=== PATIENT | female | born 1945 | race Caucasian/White ===

== ENCOUNTER 2016-10-21 13:35 | Emergency (ER) | payer MEDICARE, OTHER ==
[2016-10-21] MEDS ORDERED: BABY ASPIRIN 81 MG CHEW PO ONE (14:23)
[2016-10-21] MEDS ORDERED: Sodium Chloride 0.9% 1000 ML 1,000 ML IV SCH (14:30)
[2016-10-21] MEDS ORDERED: Xopenex 1.25 MG/0.5 ML UD NEBULE IH ONE ×2 (14:31→14:50)
[2016-10-21] MEDS ORDERED: Levofloxacin 500MG/100ML D5W 100 ML IV ONE ×2 (14:31→14:36)
--- NOTE | 2016-10-21 14:34 | ERPHSYRPT ---
- History of Present Illness Time Seen by Provider: 10/21/16 13:55 Source: patient Exam Limitations: clinical condition Patient Subjective Stated Complaint: STATES URI FOR ONE WEEK AND TIGHTNESS IN CHEST WITH COUGHING. DENIES PROD COUGH. CHEST TIGHTNESS IS A "5" AT REST. DENIES ANY OTHER SYMPTOMS Triage Nursing Assessment: AMBULATED TO ROOM WITHOUT DIFFICULTY. SKIN W/D, COLOR NORMAL, RESP EASY. OCCASIONAL DRY COUGH NOTED. SLIGHT EDEMA NOTED TO RIGHT LOWER LEG. PATIENT STATES THIS IS NORMAL FOR HER. PEDAL PULSES FAINT. GOOD CAP REFILL Physician History: PATIENT COMPLAINS OF PRODUCTIVE COUGH X 7 DAYS ASSOCIATED WITH CHEST TIGHTNESS, FEVER, CHILLS. HAS OCCASIONAL DYSPNEA. DENIES RADIATION OF CHEST TIGHTNESS TO NECK, JAW OR ARMS. Timing/Duration: week(s) Cough Quality/Degree: productive cough, sputum Possible Cause: occasional episodes Modifying Factors: Improves With: activity, coughing, deep breath Associated Symptoms: chest pain/soreness (UPON COUGHING) International travel in last 2 weeks: No Allergies/Adverse Reactions: amoxicillin [From Augmentin] Allergy (Verified 10/21/16 14:45) clavulanic acid [From Augmentin] Allergy (Verified 10/21/16 14:45) Sulfa (Sulfonamide Antibiotics) Allergy (Verified 10/21/16 14:45) acetaminophen [From Vicodin] Adverse Reaction (Verified 10/21/16 14:45) hydrocodone bitartrate [From Vicodin] Adverse Reaction (Verified 10/21/16 14:45) prednisone Adverse Reaction (Verified 10/21/16 14:45) Home Medications: Aspirin 81 mg PO DAILY 10/15/13 [History] Atenolol 50 mg [Tenormin 50 mg] 50 mg PO HS 10/15/13 [History] Cholecalciferol (Vitamin D3) [Replesta] 50,000 units PO DAILY 10/15/13 [History] Duloxetine HCl [Cymbalta] 60 mg PO BID 10/15/13 [History] Ezetimibe/Simvastatin [Vytorin 10-40 mg Tablet] 1 tab PO UD 10/15/13 [History] Ibuprofen 200 mg [Motrin 200 mg] 600 mg PO DAILY 10/15/13 [History] Pregabalin 50 mg [Lyrica 50MG] 50 mg PO BID 10/15/13 [History] Risedronate Sodium 35 mg [Actonel 35 MG Tablet] 35 mg PO WEEKLY 10/15/13 [ History] Zolpidem Tartrate [Ambien] 5 mg PO HS 10/15/13 [History] Cyanocobalamin 100 Mcg [Vitamin B-12 100 Mcg] 100 mcg SQ UD 02/05/16 [ History] Mirabegron [Myrbetriq] 25 mg PO DAILY 02/05/16 [History] Hx Tetanus, Diphtheria Vaccination/Date Given: No Hx Influenza Vaccination/Date Given: Yes Hx Pneumococcal Vaccination/Date Given: Yes - Review of Systems Constitutional: Fever, Chills Eyes: No Symptoms Ears, Nose, & Throat: No Symptoms Respiratory: Cough, Dyspnea Cardiac: Chest Pain, No Edema, No Syncope Abdominal/Gastrointestinal: No Symptoms, No Abdominal Pain, No Nausea, No Vomiting, No Diarrhea Genitourinary Symptoms: No Symptoms, No Dysuria Musculoskeletal: No Symptoms, No Back Pain, No Neck Pain Skin: No Symptoms, No Rash Neurological: No Dizziness, No Focal Weakness, No Sensory Changes Psychological: No Symptoms Endocrine: No Symptoms All Other Systems: Reviewed and Negative - Past Medical History Pertinent Past Medical History: Yes Neurological History: No Pertinent History ENT History: No Pertinent History Cardiac History: Hypertension Respiratory History: No Pertinent History Endocrine Medical History: No Pertinent History Musculoskeletal History: Arthritis GI Medical History: No Pertinent History History: No Pertinent History Psycho-Social History: No Pertinent History Female Reproductive Disorders: No Pertinent History - Past Surgical History Past Surgical History: Yes Neuro Surgical History: No Pertinent History Cardiac: No Pertinent History Respiratory: No Pertinent History Gastrointestinal: Hemorrhoidectomy Genitourinary: No Pertinent History Musculoskeletal: Orthopedic Surgery Female Surgical History: Hysterectomy Other Surgical History: TONSIL - Social History Smoking Status: Former smoker Exposure to second hand smoke: No Drug Use: none Patient Lives Alone: No - Nursing Vital Signs Nursing Vital Signs: Initial Vital Signs Temperature 98.2 F Temperature Source Oral Pulse Rate [Right Radial] 80 Pulse Rate 76 Respiratory Rate 22 Blood Pressure [Right Arm] 108/55 Pain Intensity 5 - Physical Exam General Appearance: no apparent distress, alert Eye Exam: PERRL/EOMI, eyes nml inspection Ears, Nose, Throat Exam: normal ENT inspection, TMs normal, pharynx normal, moist mucous membranes Neck Exam: normal inspection, non-tender, supple, full range of motion Respiratory Exam: crackles/rales (GOOD AIR EXCHANGE WITH RIGHT BASILAR CRACKLES FAINT WHEEZES, NO RHONCHI), No respiratory distress Cardiovascular Exam: regular rate/rhythm, normal heart sounds Gastrointestinal/Abdomen Exam: soft, normal bowel sounds (NONTENDER), No tenderness Back Exam: normal inspection, No CVA tenderness, No vertebral tenderness Extremity Exam: normal inspection, normal range of motion Neurologic Exam: alert, oriented x 3, cooperative, normal mood/affect, sensation nml, No motor deficits Skin Exam: normal color, warm, dry, No rash Lymphatic Exam: No adenopathy SpO2 Interpretation: normal SpO2: 97 Oxygen Delivery: Nasal Cannula - Course EKG Interpreted by Me: Sinus Rhythm, NORMAL AXIS - Radiology Exams Chest X-ray Interpretation: Interpreted by me (LEFT BASILAR STRANDING, NO INFILTRATES) Ordered Tests: Active Orders 24 hr Category Date Time Status EKG-ER Only STAT Care 10/21/16 14:23 Active Oxygen-ED Only NASAL CANNULA 2 lpm Care 10/21/16 14:23 Active CHEST 2 VIEWS (PA AND LAT) Stat Exams 10/21/16 14:23 Taken BLOOD CULTURE Stat Lab 10/21/16 14:56 Received BMP Stat Lab 10/21/16 13:50 Completed CBC W DIFF Stat Lab 10/21/16 13:50 Completed CULTURE,SPUTUM Stat Lab 10/21/16 14:31 Uncollected TROPONIN Stat Lab 10/21/16 13:50 Completed Respiratory Nebulizer STAT RT 10/21/16 15:00 Completed Medication Summary Generic Name Dose Route Start Last Admin Trade Name Freq PRN Reason Stop Dose Admin Sodium Chloride 1,000 mls @ 100 mls/hr 10/21/16 14:30 10/21/16 14:38 Sodium Chloride 0.9% 1000 Ml IV 11/20/16 14:29 100 mls/hr .Q10H ELIZA Administration Discontinued Medications Generic Name Dose Route Start Last Admin Trade Name Freq PRN Reason Stop Dose Admin Aspirin 243 mg 10/21/16 14:23 10/21/16 14:38 Baby Aspirin 81 Mg Chew PO 10/21/16 14:24 243 mg STAT ONE Administration Aspirin Confirm 10/21/16 14:36 Baby Aspirin 81 Mg Chew Administered 10/21/16 14:37 Dose 81 mg .ROUTE .STK-MED ONE Levofloxacin/Dextrose 100 mls @ 100 mls/hr 10/21/16 14:31 10/21/16 14:37 Levofloxacin 500mg/100ml D5w IV 10/21/16 15:30 100 mls/hr STAT ONE Administration Sodium Chloride Confirm 10/21/16 14:36 Sodium Chloride 0.9% 1000 Ml Administered 10/21/16 14:37 Dose 1,000 mls @ ud .ROUTE .STK-MED ONE Levofloxacin/Dextrose Confirm 10/21/16 14:36 Levofloxacin 500mg/100ml D5w Administered 10/21/16 14:37 Dose 100 mls @ ud IV .STK-MED ONE Levalbuterol HCl 1.25 mg 10/21/16 14:31 10/21/16 15:00 Xopenex 1.25 Mg/0.5 Ml Ud Nebule IH 10/21/16 14:32 1.25 mg STAT ONE Administration Levalbuterol HCl Confirm 10/21/16 14:50 Xopenex 1.25 Mg/0.5 Ml Ud Nebule Administered 10/21/16 14:51 Dose 1.25 mg IH .STK-MED ONE Sodium Chloride Confirm 10/21/16 14:50 Sodium Chloride 3 Ml Ud Nebules Administered 10/21/16 14:51 Dose 3 ml IH .STK-MED ONE Lab/Rad Data: Laboratory Result Diagrams 10/21/16 13:50 10/21/16 13:50 Laboratory Results 10/21/16 10/21/16 10/21/16 Range/Units 13:50 13:50 13:50 WBC 7.9 (4.0-10.5) K/mm3 RBC 3.81 L (4.1-5.4) M/mm3 Hgb 12.4 (12.0-16.0) gm/dl Hct 37.9 (35-47) % MCV 99.5 (78-100) fl MCH 32.5 H (26-32) pg MCHC 32.7 (32-36) g/dl RDW 13.2 (11.5-14.0) % Plt Count 292 (150-450) K/mm3 MPV 9.9 H (6-9.5) fl Gran % 57.5 (36.0-66.0) % Lymphocytes % 32.5 (24.0-44.0) % Monocytes % 6.7 (0.0-12.0) % Eosinophils % 3.2 (0.00-5.0) % Basophils % 0.1 (0.0-0.4) % Basophils # 0.01 (0-0.4) Sodium 144 (136-145) mEq/L Potassium 3.9 (3.5-5.1) mEq/L Chloride 108 H (98-107) mEq/L Carbon Dioxide 26.0 (21-32) mEq/L Anion Gap 13.8 (5-15) MEQ/L BUN 18 (9-20) mg/dL Creatinine 1.19 (0.55-1.30) mg/dl Estimated GFR 47 ML/MIN Glucose 91 (70-110) MG/DL Calcium 8.7 (8.5-10.1) mg/dL Troponin I < 0.017 (0.000-0.056) ng/ml - Progress Progress: improved Air Movement: good Progress Note: 10/21/16 14:51 PATIENT GIVEN IV NORMAL SALINE 100ML/HR, LEVAQUIN 500MG IVPB, XOPENEX 1.25MG AEROSOL TREATMENT Blood Culture(s) Obtained: Yes Antibiotics given: Yes (LEVAQUIN 500MG IVPB) Counseled pt/family regarding: lab results, diagnosis, need for follow-up, rad results - Departure Time of Disposition: 17:00 Departure Disposition: Home Clinical Impression: ACUTE BRONCHITIS Condition: Stable Critical Care Time: No Additional Instructions: ANTIBIOTIC LEVAQUIN 500MG DAILY FOR 10 DAYS. TESSALON PERLES 100MG EVERY 12 HOURS NEEDED FOR COUGHING. TYLENOL OR MOTRIN NEEDED FOR FEVER. CONSULT YOUR FAMILY PHYSICIAN FOR EVALUATION IN 1 WEEK. RETURN TO EMERGENCY FOR PERSISTENT COUGH, FEVER OR ONSET OF DIFFICULTY BREATHING. Prescriptions: Benzonatate [Tessalon Perle] 100 mg PO BIDPRN PRN #15 capsule PRN Reason: Cough Levofloxacin [Levaquin] 500 mg PO DAILY #10 tablet
[2016-10-21] MEDS ORDERED: Sodium Chloride 0.9% 1000 ML 1,000 ML ONE (14:36)
[2016-10-21] MEDS ORDERED: BABY ASPIRIN 81 MG CHEW ONE (14:36)
[2016-10-21 14:47] LABS: BASOPHIL % 0.1 % (0.0-0.4); Eosinophil % 3.2 % (0.00-5.0); Granulocytes % 57.5 % (36.0-66.0); Lymphocytes % 32.5 % (24.0-44.0); Mean Cell Volume 99.5 fl (78-100); Mean Corpuscular Hemoglobin 32.5 pg (26-32); Mean Platelet Volume 9.9 fl (6-9.5); Monocytes % 6.7 % (0.0-12.0); Platelet Count 292 K/mm3 (150-450); Red Blood Count 3.81 M/mm3 (4.1-5.4); Red Cell Distribution Width 13.2 % (11.5-14.0); White Blood Count 7.9 K/mm3 (4.0-10.5)
[2016-10-21 14:50] LABS: ANION GAP 13.8 MEQ/L (5-15); Potassium 3.9 mEq/L (3.5-5.1)
[2016-10-21] MEDS ORDERED: Sodium Chloride 3 ML UD NEBULES IH ONE (14:50)
[2016-10-21 17:16] VITALS: BP 97/62; PULSE 75; O2SAT 96
--- NOTE | 2016-10-21 20:14 | XRAY ---
Indication: Cough. Comparison: July 26, 2013. PA/lateral chest again hyperinflated with minimal bibasilar subsegmental atelectasis/scarring. Remaining heart and lungs normal. Bony thorax intact again with mild osteopenia and degenerative changes. Impression: Stable nonacute chest with chronic features.
== END 2016-10-21 17:17 | disposition home or self-care (01) ==
LOC: ED 13:35
DX: J20.9 Acute bronchitis, unspecified (principal); R05 Cough; R07.9 Chest pain, unspecified; F50.9 Eating disorder, unspecified; Z79.899 Other long term (current) drug therapy
CPT/HCPCS: 96365; 99285; 36000; 96360; 96361; 93005; 87040; 36415; 85025; 80048; 84484; 71020; 94640; A9270 ×2; 99284; J1956

== ENCOUNTER 2016-12-25 08:59 | Emergency (ER) | payer MEDICARE, OTHER ==
[2016-12-25] MEDS ORDERED: SUBLIMAZE 100 MCG/2 ML IV ONE (09:37)
--- NOTE | 2016-12-25 09:43 | ERPHSYRPT ---
- History of Present Illness Time Seen by Provider: 12/25/16 09:05 Source: patient, family () Patient Subjective Stated Complaint: pt states on in the evening she fell over her dog and landed on right side. pt states he hit the right side of head. pt c/o pain to head and feels "off." Triage Nursing Assessment: pt pink, warm, dry. pt ambulated into er on own without difficulty. no bruising to right side. hematoma noted to right side of head. pupils perrl. Physician History: CC: fall Hx: 71 y/o patient of Dr Morgan Lieberman. She fell Saturday (2 days ago) when a dog was running under her feet. She bumped head and had a large hematoma. She has neck pain. She now has worsened headache and feeling of dizziness. No N/T/W. She has increased right hip pain. Able to ambulate. No chest or abd pain. No cuts. Takes ASA daily. Symptoms worse so came to ER. Occurred: days ago (2) Reason for Fall: tripped Severity of Pain-Max: moderate Severity of Pain-Current: moderate Allergies/Adverse Reactions: amoxicillin [From Augmentin] Allergy (Verified 12/25/16 09:32) clavulanic acid [From Augmentin] Allergy (Verified 12/25/16 09:32) Sulfa (Sulfonamide Antibiotics) Allergy (Verified 12/25/16 09:32) acetaminophen [From Vicodin] Adverse Reaction (Verified 12/25/16 09:32) hydrocodone bitartrate [From Vicodin] Adverse Reaction (Verified 12/25/16 09:32) prednisone Adverse Reaction (Verified 12/25/16 09:32) Home Medications: Aspirin 81 mg PO DAILY 10/15/13 [History] Atenolol 50 mg [Tenormin 50 mg] 50 mg PO HS 10/15/13 [History] Cholecalciferol (Vitamin D3) [Replesta] 50,000 units PO DAILY 10/15/13 [History] Duloxetine HCl [Cymbalta] 60 mg PO BID 10/15/13 [History] Ezetimibe/Simvastatin [Vytorin 10-40 mg Tablet] 1 tab PO UD 10/15/13 [History] Ibuprofen 200 mg [Motrin 200 mg] 600 mg PO DAILY 10/15/13 [History] Risedronate Sodium 35 mg [Actonel 35 MG Tablet] 35 mg PO WEEKLY 10/15/13 [ History] Zolpidem Tartrate [Ambien] 5 mg PO HS 10/15/13 [History] Cyanocobalamin 100 Mcg [Vitamin B-12 100 Mcg] 100 mcg SQ UD 02/05/16 [ History] Mirabegron [Myrbetriq] 50 mg PO DAILY 02/05/16 [History] Hx Tetanus, Diphtheria Vaccination/Date Given: Yes (up to date) Hx Influenza Vaccination/Date Given: Yes Hx Pneumococcal Vaccination/Date Given: Yes Immunizations Up to Date: Yes - Review of Systems Constitutional: No Symptoms Eyes: No Symptoms, No Vision Changes Respiratory: No Dyspnea Cardiac: No Chest Pain Abdominal/Gastrointestinal: No Abdominal Pain, No Vomiting Musculoskeletal: Neck Pain Neurological: Dizziness, Headache, No Focal Weakness, No Parasthesia All Other Systems: Reviewed and Negative - Past Medical History Pertinent Past Medical History: Yes Neurological History: No Pertinent History ENT History: No Pertinent History Cardiac History: Hypertension Respiratory History: No Pertinent History Endocrine Medical History: No Pertinent History Musculoskeletal History: Arthritis GI Medical History: No Pertinent History History: No Pertinent History Psycho-Social History: No Pertinent History Female Reproductive Disorders: No Pertinent History - Past Surgical History Past Surgical History: Yes Neuro Surgical History: No Pertinent History Cardiac: No Pertinent History Respiratory: No Pertinent History Gastrointestinal: Hemorrhoidectomy Genitourinary: No Pertinent History Musculoskeletal: Orthopedic Surgery Female Surgical History: Hysterectomy Other Surgical History: TONSIL - Social History Smoking Status: Never smoker Exposure to second hand smoke: No Drug Use: none Patient Lives Alone: No - Nursing Vital Signs Nursing Vital Signs: Initial Vital Signs Temperature 97.5 F Temperature Source Oral Pulse Rate 59 Respiratory Rate 18 Blood Pressure [Right Arm] 131/77 Pain Intensity 3 - Anabelle Coma Score Best Eye Response (Anabelle): (4) open spontaneously Best Verbal Response (Morrison): (5) oriented Best Motor Response (Anabelle): (6) obeys commands Morrison Total: 15 - Physical Exam General Appearance: alert Head Injury: contusions (occipital) Eye Exam: PERRL/EOMI ENT Exam: airway nml Neck Exam: mid-line tenderness Respiratory/Chest Exam: normal breath sounds, No chest tenderness Cardiovascular Exam: regular rate/rhythm Gastrointestinal Exam: soft, No tenderness, No distention Extremity Exam: normal inspection, normal range of motion, bony point tenderness (tender right hip) Neurologic Exam: alert, oriented x 3, cooperative, sensation nml, No motor deficits Skin Exam: warm, dry, No rash SpO2 Interpretation: normal SpO2: 98 Oxygen Delivery: Room Air - Course Nursing assessment & vital signs reviewed: Yes Ordered Tests: Active Orders 24 hr Category Date Time Status IV Insertion STAT Care 12/25/16 09:37 Active CERVICAL SPINE WO CONTRAST [CT] Stat Exams 12/25/16 09:38 Completed HEAD WITHOUT CONTRAST [CT] Stat Exams 12/25/16 09:38 Completed HIP UNI (2V) INCL PEL IF DONE Stat Exams 12/25/16 09:39 Completed CBC W DIFF Stat Lab 12/25/16 09:54 Completed CMP Stat Lab 12/25/16 09:54 Completed Medication Summary Discontinued Medications Generic Name Dose Route Start Last Admin Trade Name Freq PRN Reason Stop Dose Admin Fentanyl Citrate 50 mcg 12/25/16 09:37 12/25/16 10:04 Sublimaze 100 Mcg/2 Ml IV 12/25/16 09:38 50 mcg STAT ONE Administration Fentanyl Citrate Confirm 12/25/16 09:50 Sublimaze 100 Mcg/2 Ml Administered 12/25/16 09:51 Dose 100 mcg .ROUTE .STAdbongo-MED ONE Lab/Rad Data: Laboratory Result Diagrams 12/25/16 09:54 12/25/16 09:54 Laboratory Results 12/25/16 12/25/16 Range/Units 09:54 09:54 WBC 7.2 (4.0-10.5) K/mm3 RBC 3.83 L (4.1-5.4) M/mm3 Hgb 12.3 (12.0-16.0) gm/dl Hct 38.2 (35-47) % MCV 99.7 (78-100) fl MCH 32.1 H (26-32) pg MCHC 32.2 (32-36) g/dl RDW 13.0 (11.5-14.0) % Plt Count 257 (150-450) K/mm3 MPV 9.7 H (6-9.5) fl Gran % 52.5 (36.0-66.0) % Lymphocytes % 35.9 (24.0-44.0) % Monocytes % 9.6 (0.0-12.0) % Eosinophils % 1.9 (0.00-5.0) % Basophils % 0.1 (0.0-0.4) % Basophils # 0.01 (0-0.4) Sodium 143 (136-145) mEq/L Potassium 4.5 (3.5-5.1) mEq/L Chloride 107 (98-107) mEq/L Carbon Dioxide 30.4 (21-32) mEq/L Anion Gap 10.5 (5-15) MEQ/L BUN 18 (9-20) mg/dL Creatinine 1.03 (0.55-1.30) mg/dl Estimated GFR 56 ML/MIN Glucose 88 (70-110) MG/DL Calcium 9.1 (8.5-10.1) mg/dL Total Bilirubin 0.4 (0.2-1.0) mg/dL AST 21 (15-37) U/L ALT 22 (12-78) U/L Alkaline Phosphatase 45 L (46-116) U/L Serum Total Protein 7.0 (6.4-8.2) gm/dL Albumin 3.4 (3.4-5.0) g/dL - Progress Progress Note: 12/25/16 11:17 Xray hip, pelvis, CT cervical and brain neg for acute. She feels better with meds. Labs reviewed. Will release with concussion instructions. Counseled pt/family regarding: lab results, diagnosis, need for follow-up, rad results - Departure Time of Disposition: 11:18 Departure Disposition: Home Clinical Impression: Contusion of right hip, Concussion, Cervical sprain Fall Qualifiers: Encounter type: initial encounter Qualified Code(s): W19.XXXA - Unspecified fall, initial encounter Condition: Stable Critical Care Time: No Referrals: MORGAN LIEBERMAN [Primary Care Provider] - Instructions: Prevent Falls, Concussion, Contusion Additional Instructions: HEAD INJURY 1. A responsible person should observe the patient at home for 24 hours. 2. If any of the following signs or symptoms are observed or occur, call your family physician or return to the emergency department: A. Behavior change B. Persistent vomiting C. Unequal pupils D. Increasing drowsiness E. Difficulty in arousing the patient F. Severe headache G. Lump on head increasing in size Tylenol as directed. Follow up Saturday with Dr Morgan Lieberman.
[2016-12-25] MEDS ORDERED: SUBLIMAZE 100 MCG/2 ML ONE (09:50)
[2016-12-25 10:10] LABS: BASOPHIL % 0.1 % (0.0-0.4); Eosinophil % 1.9 % (0.00-5.0); Granulocytes % 52.5 % (36.0-66.0); Lymphocytes % 35.9 % (24.0-44.0); Mean Cell Volume 99.7 fl (78-100); Mean Corpuscular Hemoglobin 32.1 pg (26-32); Mean Platelet Volume 9.7 fl (6-9.5); Monocytes % 9.6 % (0.0-12.0); Platelet Count 257 K/mm3 (150-450); Red Blood Count 3.83 M/mm3 (4.1-5.4); White Blood Count 7.2 K/mm3 (4.0-10.5)
--- NOTE | 2016-12-25 10:23 | XRAY ---
Indication: Pain. Posterior head injury following fall 3 days ago. Multiple contiguous axial images obtained through the cervical spine. Sagittal and coronal reformatted images obtained. Comparison: None Axial images are negative for acute fracture, suspicious bony lesions, or spinal canal stenosis. There is mild/moderate C4-C7 degenerative endplate spurring. Left C7-T1 degenerative facet arthropathy. Sagittal and coronal reformatted images demonstrates lordotic straightening, positional versus paraspinal muscular spasm. C4-C7 degenerative disc space narrowing. No acute compression fracture, subluxation, or jumped facet. Normal-appearing craniocervical junction. Visualized noncontrasted soft tissues demonstrates minimal carotid calcifications bilaterally. Lung apices clear. CT head reported separately. Impression: 1. Negative for acute fracture/subluxation. 2. Lordotic straightening, positional versus paraspinal spasm. 3. Multilevel degenerative changes. CT DI 34.98
--- NOTE | 2016-12-25 10:24 | XRAY ---
Indication: Pain. Posterior head injury following fall 3 days ago. Multiple contiguous axial images obtained through the head without contrast. Comparison: None Normal appearing brain parenchyma, ventricles, and bony calvarium. Visualized paranasal sinuses and mastoid air cells are pneumatized and clear. Impression: Normal CT head without contrast exam. CT DI 50.62
[2016-12-25 10:36] LABS: ALBUMIN 3.4 g/dL (3.4-5.0); ANION GAP 10.5 MEQ/L (5-15); BILIRUBIN,TOTAL 0.4 mg/dL (0.2-1.0); Carbon Dioxide 30.4 mEq/L (21-32); Potassium 4.5 mEq/L (3.5-5.1)
--- NOTE | 2016-12-25 10:53 | XRAY ---
Indication: Pain following fall 3 days ago. Comparison: October 08, 2013. AP pelvis and 2 views of the right hip again demonstrates pelvic phleboliths. No new/acute bony, articular, or soft tissue abnormalities.
[2016-12-25 11:34] VITALS: BP 105/70; PULSE 70; O2SAT 100
== END 2016-12-25 11:33 | disposition home or self-care (01) ==
LOC: ED 08:59
DX: S70.01XA Contusion of right hip, initial encounter (principal); S06.0X9A Concussion with loss of consciousness of unspecified duration, initial encounter; S13.4XXA Sprain of ligaments of cervical spine, initial encounter; M54.2 Cervicalgia; W01.0XXA Fall on same level from slipping, tripping and stumbling without subsequent striking against object, initial encounter; Y93.K9 Activity, other involving animal care; R51 Headache; R42 Dizziness and giddiness
CPT/HCPCS: 36000; 36415; 70450; 72125; 73502; 80053; 85025; 96374; 99284; J3010

== ENCOUNTER 2017-03-29 21:25 | Emergency (ER) | payer MEDICARE, OTHER ==
[2017-03-29] MEDS ORDERED: Reglan 10 MG/2 ML IV ONE (21:45)
[2017-03-29] MEDS ORDERED: Zofran 4 MG/2 ML VIAL IV ONE (21:46)
[2017-03-29] MEDS ORDERED: BENADRYL 50 MG/ML IV ONE (21:46)
--- NOTE | 2017-03-29 21:53 | ERPHSYRPT ---
- History of Present Illness Time Seen by Provider: 03/29/17 21:35 Source: patient, family Exam Limitations: no limitations Patient Subjective Stated Complaint: Pt. had Concussive injury from fall 2016. She had MRI without abn at that workup. She has had headaches as postconcussive syndrome since. This particular heaqdache seems more lasting, but is not the worst headache of her life. No dizziness or vomiting. She does have usual photophobia and is wearing sunglasses here to help. Timing/Duration: week(s) (5) Quality: aching Head Pain Location: frontal (and vertex) Severity of Pain-Max: moderate Severity of Pain-Current: moderate Recent Head Trauma: frequent headaches, head trauma > 24 hrs ago Modifying Factors: Improves With: exposure to light Associated Symptoms: No confusion, No dizziness, No light-headedness, No loss of consciousness, No nausea/vomiting Previous symptoms: same symptoms as today Allergies/Adverse Reactions: amoxicillin [From Augmentin] Allergy (Verified 03/29/17 21:48) clavulanic acid [From Augmentin] Allergy (Verified 03/29/17 21:48) Sulfa (Sulfonamide Antibiotics) Allergy (Verified 03/29/17 21:48) acetaminophen [From Vicodin] Adverse Reaction (Verified 03/29/17 21:48) hydrocodone bitartrate [From Vicodin] Adverse Reaction (Verified 03/29/17 21:48) prednisone Adverse Reaction (Verified 03/29/17 21:48) Home Medications: Aspirin 81 mg PO DAILY 10/15/13 [History] Atenolol 50 mg [Tenormin 50 mg] 50 mg PO HS 10/15/13 [History] Cholecalciferol (Vitamin D3) [Replesta] 50,000 units PO DAILY 10/15/13 [History] Ezetimibe/Simvastatin [Vytorin 10-40 mg Tablet] 1 tab PO DAILY 10/15/13 [History ] Ibuprofen 200 mg [Motrin 200 mg] 600 mg PO DAILY 10/15/13 [History] Risedronate Sodium 35 mg [Actonel 35 MG Tablet] 35 mg PO WEEKLY 10/15/13 [ History] Zolpidem Tartrate [Ambien] 5 mg PO HS 10/15/13 [History] Cyanocobalamin 100 Mcg [Vitamin B-12 100 Mcg] 100 mcg SQ UD 02/05/16 [ History] Mirabegron [Myrbetriq] 50 mg PO DAILY 02/05/16 [History] Hx Tetanus, Diphtheria Vaccination/Date Given: Yes (up to date) Hx Influenza Vaccination/Date Given: Yes Hx Pneumococcal Vaccination/Date Given: Yes - Review of Systems Constitutional: No Symptoms Eyes: No Symptoms Ears, Nose, & Throat: No Symptoms Respiratory: No Symptoms Cardiac: No Symptoms Abdominal/Gastrointestinal: No Symptoms Genitourinary Symptoms: No Symptoms Musculoskeletal: Neck Pain Skin: No Symptoms Neurological: Headache, No Dizziness, No Focal Weakness, No Gait Changes, No Parasthesia, No Seizure Psychological: No Symptoms Endocrine: No Symptoms Hematologic/Lymphatic: No Symptoms Immunological/Allergic: No Symptoms All Other Systems: Reviewed and Negative - Past Medical History Pertinent Past Medical History: Yes Neurological History: No Pertinent History ENT History: No Pertinent History Cardiac History: Hypertension Respiratory History: No Pertinent History Endocrine Medical History: No Pertinent History Musculoskeletal History: Arthritis GI Medical History: No Pertinent History History: No Pertinent History Psycho-Social History: No Pertinent History Female Reproductive Disorders: No Pertinent History - Past Surgical History Past Surgical History: Yes Neuro Surgical History: No Pertinent History Cardiac: No Pertinent History Respiratory: No Pertinent History Gastrointestinal: Hemorrhoidectomy Genitourinary: No Pertinent History Musculoskeletal: Orthopedic Surgery Female Surgical History: Hysterectomy Other Surgical History: TONSIL - Social History Smoking Status: Never smoker Exposure to second hand smoke: No Drug Use: none Patient Lives Alone: No - Nursing Vital Signs Nursing Vital Signs: Initial Vital Signs Temperature 97.6 F 03/29/17 21:33 Pulse Rate 82 03/29/17 21:33 Respiratory Rate 18 03/29/17 21:33 Blood Pressure 149/80 03/29/17 21:33 O2 Sat by Pulse Oximetry 96 03/29/17 21:33 Pain Scale Pain Intensity 10 Reviewed - Physical Exam Eye Exam: PERRL/EOMI, eyes nml inspection Ears, Nose, Throat Exam: normal ENT inspection, pharynx normal, moist mucous membranes Neck Exam: normal inspection, non-tender, supple, full range of motion Respiratory Exam: normal breath sounds, lungs clear, airway intact Cardiovascular Exam: regular rate/rhythm, normal heart sounds, normal peripheral pulses Gastrointestinal/Abdominal Exam: soft, normal bowel sounds Back Exam: normal inspection Extremity Exam: normal inspection, normal range of motion, pelvis stable Mental Status Exam: alert, oriented x 3, 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, normal speech, PERRL Motor/Sensory Exam: no motor deficit, no sensory deficit, no pronator drift Skin Exam: normal color, warm, dry Lymphatic Exam: adenopathy - Course Nursing assessment & vital signs reviewed: Yes - CT Exams Head CT Interpretation: Negative, Tele-radiologist Report Ordered Tests: Active Orders 24 hr Category Date Time Status HEAD WITHOUT CONTRAST [CT] Stat Exams 03/29/17 21:44 Taken Medication Summary Discontinued Medications Generic Name Dose Route Start Last Admin Trade Name Freq PRN Reason Stop Dose Admin Diphenhydramine HCl 25 mg 03/29/17 21:46 Benadryl 50 Mg/Ml IV 03/29/17 21:47 STAT ONE Diphenhydramine HCl Confirm 03/29/17 22:02 Benadryl 50 Mg/Ml Administered 03/29/17 22:03 Dose 50 mg .ROUTE .STK-MED ONE Metoclopramide HCl 10 mg 03/29/17 21:45 Reglan 10 Mg/2 Ml IV 03/29/17 21:46 STAT ONE Metoclopramide HCl Confirm 03/29/17 22:02 Reglan 10 Mg/2 Ml Administered 03/29/17 22:03 Dose 10 mg .ROUTE .STK-MED ONE Ondansetron HCl 4 mg 03/29/17 21:46 Zofran 4 Mg/2 Ml Vial IV 03/29/17 21:47 STAT ONE Ondansetron HCl Confirm 03/29/17 22:02 Zofran 4 Mg/2 Ml Vial Administered 03/29/17 22:03 Dose 4 mg .ROUTE .STK-MED ONE - Progress Progress: improved Air Movement: good Blood Culture(s) Obtained: No Antibiotics given: No Will see patient in: office (PCP and Neurologist visits as scheduled.) Counseled pt/family regarding: diagnosis, need for follow-up, rad results - Departure Time of Disposition: 22:20 Departure Disposition: Home Clinical Impression: Post-concussion headache Condition: Stable Critical Care Time: No Referrals: MORGAN LIEBERMAN [Primary Care Provider] -
[2017-03-29] MEDS ORDERED: BENADRYL 50 MG/ML ONE (22:02)
[2017-03-29] MEDS ORDERED: Zofran 4 MG/2 ML VIAL ONE (22:02)
[2017-03-29] MEDS ORDERED: Reglan 10 MG/2 ML ONE (22:02)
[2017-03-29 23:13] VITALS: BP 117/50; PULSE 76; O2SAT 100
--- NOTE | 2017-03-30 09:00 | XRAY ---
Indication: Headache. Multiple contiguous axial images obtained through the head without contrast. Comparison: None Again normal appearing brain parenchyma, ventricles, and bony calvarium. Visualized paranasal sinuses and mastoid air cells clear. Impression: Stable normal CT head without contrast exam. Comment: Preliminary interpretation was made by [facility]. No discrepancy. CTDI 50.97
== END 2017-03-29 23:13 | disposition home or self-care (01) ==
LOC: ED 21:25
DX: F07.81 Postconcussional syndrome (principal); G44.309 Post-traumatic headache, unspecified, not intractable
CPT/HCPCS: 36000; 70450; 96374; 96375; 99284; J1200; J2405

== ENCOUNTER 2018-10-26 12:08 | Emergency (ER) | payer MEDICARE, OTHER ==
[2018-10-26 12:40] VITALS: PULSE 84
--- NOTE | 2018-10-26 12:57 | ERPHSYRPT ---
- History of Present Illness Time Seen by Provider: 10/26/18 12:53 Source: patient Exam Limitations: no limitations Patient Subjective Stated Complaint: fell in garage one month ago and has been having intermittent pain in right ankle and foot. states pain is getting worse. had used heat at home and taken tylenol without relief. Triage Nursing Assessment: ambulated to room per self guarding right foot. skin w/d, color normal. slight swelling noted to right foot and ankle. good pedal pulse. Physician History: fell in garage one month ago and has been having intermittent pain in right ankle and foot. states pain is getting worse. had used heat at home and taken tylenol without relief. Method of Injury: fell Occurred: other (month ago) Quality: constant Lower Extremities Pain: ankle: right Modifying Factors: Improves With: nothing Associated Symptoms: none Allergies/Adverse Reactions: amoxicillin [From Augmentin] Allergy (Verified 03/29/17 21:48) clavulanic acid [From Augmentin] Allergy (Verified 03/29/17 21:48) Sulfa (Sulfonamide Antibiotics) Allergy (Verified 03/29/17 21:48) acetaminophen [From Vicodin] Adverse Reaction (Verified 03/29/17 21:48) hydrocodone bitartrate [From Vicodin] Adverse Reaction (Verified 10/26/18 12:35) prednisone Adverse Reaction (Verified 03/29/17 21:48) Home Medications: Aspirin 81 mg PO DAILY 10/15/13 [History] Atenolol 50 mg [Tenormin 50 mg] 50 mg PO HS 10/15/13 [History] Cholecalciferol (Vitamin D3) [Replesta] 50,000 units PO DAILY 10/15/13 [History] Ezetimibe/Simvastatin [Vytorin 10-40 mg Tablet] 1 tab PO DAILY 10/15/13 [History ] Ibuprofen 200 mg [Motrin 200 mg] 600 mg PO DAILY 10/15/13 [History] Risedronate Sodium 35 mg [Actonel 35 MG Tablet] 35 mg PO WEEKLY 10/15/13 [ History] Zolpidem Tartrate [Ambien] 5 mg PO HS 10/15/13 [History] Cyanocobalamin 100 Mcg [Vitamin B-12 100 Mcg] 100 mcg SQ UD 02/05/16 [ History] Mirabegron [Myrbetriq] 50 mg PO DAILY 02/05/16 [History] Hx Tetanus, Diphtheria Vaccination/Date Given: No Hx Influenza Vaccination/Date Given: Yes Hx Pneumococcal Vaccination/Date Given: Yes - Review of Systems Constitutional: No Symptoms Eyes: No Symptoms Ears, Nose, & Throat: No Symptoms Respiratory: No Symptoms Cardiac: No Symptoms Musculoskeletal: Fall, Joint Pain (right ankle), Joint Swelling - Past Medical History Pertinent Past Medical History: Yes Neurological History: No Pertinent History ENT History: No Pertinent History Cardiac History: High Cholesterol, Hypertension Respiratory History: No Pertinent History Endocrine Medical History: No Pertinent History Musculoskeletal History: Arthritis GI Medical History: No Pertinent History History: No Pertinent History Psycho-Social History: No Pertinent History Female Reproductive Disorders: No Pertinent History - Past Surgical History Past Surgical History: Yes Neuro Surgical History: No Pertinent History Cardiac: No Pertinent History Respiratory: No Pertinent History Gastrointestinal: Hemorrhoidectomy Genitourinary: No Pertinent History Musculoskeletal: Orthopedic Surgery Female Surgical History: Hysterectomy Other Surgical History: TONSIL, CARPAL TUNNEL - Social History Smoking Status: Current some day smoker How long have you smoked: 60 Exposure to second hand smoke: No Drug Use: none Patient Lives Alone: No - Nursing Vital Signs Nursing Vital Signs: Initial Vital Signs Temperature 98.2 F 10/26/18 12:23 Pulse Rate 84 10/26/18 12:23 Respiratory Rate 16 10/26/18 12:23 Blood Pressure 162/89 10/26/18 12:23 O2 Sat by Pulse Oximetry 100 10/26/18 12:23 Pain Scale Pain Intensity 8 - Physical Exam General Appearance: no apparent distress Eyes, Ears, Nose, Throat Exam: normal ENT inspection Neck Exam: normal inspection Gastrointestinal/Abdominal Exam: non-tender Back Exam: normal inspection Ankle Exam: right ankle: limited range of motion, pain, soft tissue tenderness SpO2: 100 - Course Nursing assessment & vital signs reviewed: Yes - Radiology Exams Right Ankle X-ray Interpretation: Reviewed by me, Negative, No Fracture, No Subluxation Ordered Tests: Active Orders 24 hr Category Date Time Status ANKLE (3 VIEWS) Stat Exams 10/26/18 12:43 Taken - Progress Progress: unchanged Counseled pt/family regarding: diagnosis, need for follow-up, rad results - Departure Time of Disposition: 12:57 Departure Disposition: Home Clinical Impression: Sprain, ankle joint, medial Qualifiers: Encounter type: initial encounter Laterality: right Qualified Code(s): S93.421A - Sprain of deltoid ligament of right ankle, initial encounter Condition: Stable Critical Care Time: No Referrals: MORGAN LIEBERMAN [Primary Care Provider] - Instructions: Foot Sprain (DC), Contusion (DC), Ankle Sprain, Ankle Sprain (DC) Additional Instructions: SPRAINS/STRAINS/CONTUSIONS 1. Rest the affected area as much as possible for the next few days. 2. Apply ice to the affected area for 20-30 minutes at a time, several times a day. 3. If you receive an elastic wrap, wear it only while awake for comfort and support. Re-wrap the elastic wrap if it feels too tight or too loose. 4. If swelling is present, elevate the affected part above the level of the heart for at least 2 to 3 days. 5. Use splints, slings, or crutches as instructed. 6. Watch for severe swelling, coldness, numbness, and discoloration of the fingers and toes. See your family physician or return to the emergency department if any of these are noted. Prescriptions: Naproxen 375 mg [Naprosyn 375 mg] 375 mg PO Q8H #30 tablet
[2018-10-26 13:26] VITALS: BP 135/82; O2SAT 97
--- NOTE | 2018-10-26 20:43 | XRAY ---
Indication: Pain following injury one month ago. Comparison: None 3 views of the right ankle demonstrates small heel spurs and tiny cuboid accessory ossicle. No other bony, articular, or soft tissue abnormalities.
== END 2018-10-26 13:27 | disposition home or self-care (01) ==
LOC: ED 12:08
DX: S93.421A Sprain of deltoid ligament of right ankle, initial encounter (principal); M25.571 Pain in right ankle and joints of right foot; Z79.899 Other long term (current) drug therapy; E78.00 Pure hypercholesterolemia, unspecified; I10 Essential (primary) hypertension; M19.90 Unspecified osteoarthritis, unspecified site; S93.421S Sprain of deltoid ligament of right ankle, sequela; Z91.81 History of falling
CPT/HCPCS: 36415; 73610; 80053; 80061; 83721; 84439; 84443; 85025; 99283